=== PATIENT | female | born 1990 | race Caucasian/White ===

== ENCOUNTER → 2016-04-27 | Outpatient (CLI) | payer OTHER ==
[~2016-04-27] MED LIST: BENZ1CAP34 PO; IBUP800T23 PO; PREN0.01 PO; ZITH250T PO
== END ==
LOC: CLAB 12:42
PROVIDERS: ATTEND Obstetrics & Gynecology
DX: O62.1 Secondary uterine inertia (principal)
CPT/HCPCS: 36415; 84144

== ENCOUNTER → 2016-05-20 | Outpatient (CLI) | payer OTHER | LOC: CLAB 12:41 | PROVIDERS: ATTEND Obstetrics & Gynecology | DX: E28.9 Ovarian dysfunction, unspecified (principal) | CPT/HCPCS: 36415; 84144 ==

== ENCOUNTER → 2016-09-16 | Outpatient (CLI) | payer OTHER | LOC: CLAB 15:52 | PROVIDERS: ATTEND Obstetrics & Gynecology | DX: O26.21 Pregnancy care for patient with recurrent pregnancy loss, first trimester (principal) | CPT/HCPCS: 36415; 84144 ==

== ENCOUNTER → 2016-09-30 | Outpatient (CLI) | payer OTHER | LOC: CLAB 07:31 | PROVIDERS: ATTEND Obstetrics & Gynecology | DX: E28.9 Ovarian dysfunction, unspecified (principal) | CPT/HCPCS: 84703 ==

== ENCOUNTER → 2016-10-04 | Outpatient (CLI) | payer OTHER ==
[~2016-10-04] MED LIST changes: +IOHEXOL 300 MG/ML 50 ML BTL (for RAD DIAG) I-UTERINE ONE
--- NOTE | 2016-10-04 14:29 | RADRPT ---
EXAM DATE/TIME: 10/04/2016 07:53 [facility] COMPARISON: No previous studies available for comparison. INDICATIONS : Ovarian Dysfunction. 0.8 minutes 6 CONTRAST: 20 cc Omnipaque 300 (iohexol) DEVICE: [place]co Cannula MEDICAL HISTORY : None. SURGICAL HISTORY : None. ENCOUNTER: Initial ACUITY: 1 day PAIN SCORE: 0/10 LOCATION: Uterus. FINDINGS: Preliminary film is normal. Technical aspect of the cervical cannulation injection of contrast perf ormed by the referring physician. Examination is performed under fluoroscopic control. The uterus is normal. No defects are appreciated. There is rapid filling of the fallopian tubes and passage into the pelvis bilaterally. CONCLUSION: Normal hysterosalpingogram. Josue Braxton MD on October 04, 2016 at 14:23 Board Certified Radiologist. This report was verified electronically.
== END ==
LOC: HRAD 07:31
PROVIDERS: ATTEND Obstetrics & Gynecology
DX: E28.9 Ovarian dysfunction, unspecified (principal)
CPT/HCPCS: 58340; 74740; Q9967

== ENCOUNTER 2016-11-03 20:40 | Emergency (ER) | payer OTHER ==
[~2016-11-03] VITALS: Ht 165.1 cm; Wt 90.0 kg
[~2016-11-03 20:40] MED LIST changes: -IOHEXOL 300 MG/ML 50 ML BTL (for RAD DIAG) I-UTERINE ONE
[2016-11-03 20:45] VITALS: BP 135/82; PULSE 93; RESP 15; TEMP 99.2; O2SAT 96
--- NOTE | 2016-11-03 21:01 | PD ---
Physical Exam Time Seen by Provider: 21:00 Narrative 26 y/o female with lower abdominal pain which started today at 4pm. Vital signs reviewed. Seen at triage desk. Awaiting bed placement. Data Data Last Documented VS Vital Signs Date Time Temp Pulse Resp B/P Pulse Ox O2 Delivery O2 Flow Rate FiO2 11/03/16 20:45 99.2 93 15 135/82 96 Room Air [facility] Medical Record Reviewed: Yes Supervised Visit with ÁNGEL: Darío Ying Nov 03, 2016 21:00
[2016-11-04 00:53] VITALS: BP 127/93; PULSE 70; RESP 17; O2SAT 100
[2016-11-04 01:52] LABS: BACTERIA, URINE RARE /hpf; BASOPHIL % 0.4 % (0.0-2.0); BLOOD, URINE MOD (NEG); COMMENT (UR) CULT NOT INDICATED; CULTURE IF INDICATED CULT NOT INDICATED; EOSINOPHIL # 0.1 TH/MM3 (0-0.4); EOSINOPHIL % 0.8 % (0.0-4.0); GLUCOSE,URINE NEG (NEG); HEMATOCRIT 40.1 % (35.0-46.0); HEMO FLAGS DIFF FINAL; KETONE, URINE NEG (NEG); LYMPH % 27.9 % (9.0-44.0); LYMPHOCYTE # 3.4 TH/MM3 (1.0-4.8); MEAN CORPUSCULAR HEMOGLOBIN 24.3 PG (27.0-34.0); MEAN CORPUSCULAR HGB CONC 32.8 % (32.0-36.0); MONO % 5.1 % (0.0-8.0); MUCUS URINE FEW /lpf (OCC); NEUT % 65.8 % (16.0-70.0); NITRITE,URINE NEG (NEG); PLATELET COUNT 192 TH/MM3 (150-450); RED BLOOD COUNT 5.41 MIL/MM3 (4.00-5.30); RED CELL DISTRIBUTION WIDTH 19.2 % (11.6-17.2); SQUAMOUS EPITHELIAL CELL URINE 1 /hpf (0-5); URINE COLOR YELLOW (YELLW/STRAW); WHITE BLOOD COUNT 12.1 TH/MM3 (4.0-11.0)
[2016-11-04 01:58] LABS: ALT (GPT) 27 U/L (10-53); ANION GAP 8 MEQ/L (5-15); AST (GOT) 15 U/L (15-37); BICARBONATE 25.8 MEQ/L (21.0-32.0); BLOOD UREA NITROGEN 9 MG/DL (7-18); CHLORIDE 103 MEQ/L (98-107); GLOMERULAR FILTRATION RATE 92 ML/MIN (>89); POTASSIUM 3.7 MEQ/L (3.5-5.1); SODIUM (NA) 137 MEQ/L (136-145)
[2016-11-04 02:02] LABS: ALKALINE PHOSPHATASE 81 U/L (45-117); BETA HCG QUANT 590 MIU/ML (0-5); TOTAL BILIRUBIN ADULT 0.3 MG/DL (0.2-1.0)
--- NOTE | 2016-11-04 02:24 | PD ---
HPI Chief Complaint: Abdominal Pain Time Seen by Provider: 01:03 Travel History International Travel<30 days: No Contact w/Intl Traveler<30days: No Traveled to known affect area: No History of Present Illness HPI 26-year-old female arrives to the ER complaining of right lower quadrant abdominal pain. She reports approximately 6 hours of pain. She states the pain started somewhat suddenly. Her last menstruation was 5 weeks prior. She is 2 para 1 with one miscarriage a year ago approximately and a point-of -care urine test discovered today which was unexpected. The patient reports vaginal bleeding with wiping, a trace amount of pink blood on paper. She reports no nausea or vomiting. She has no back pain. Her appetite has been normal. She denies a history of STD. FOR[facility]LY [facility] Past Medical History Asthma: Yes Diminished Hearing: No Respiratory: Yes (ASTHMA) Tetanus Vaccination: Unknown Influenza Vaccination: Yes ?: Unknown LMP: 09/26/16 : 1 Miscarriage: 1 Ovarian Cysts: Yes Past Surgical History Surgical History: No Previous Surgery Social History Alcohol Use: No Tobacco Use: No Substance Use: No Allergies-Medications (Allergen,Severity, Reaction): Coded Allergies: No Known Allergies (Unverified , 11/03/16) Reported Meds & Prescriptions Reported Meds & Active Scripts Active No Active Prescriptions or Reported Medications Review of Systems Except as stated in HPI: all other systems reviewed are Neg Physical Exam Narrative GENERAL: 26-year-old female well-nourished well-developed SKIN: Focused skin assessment warm/dry. HEAD: Atraumatic. Normocephalic. EYES: Pupils equal and round. No scleral icterus. No injection or drainage. ENT: No nasal bleeding or discharge. Mucous membranes pink and moist. NECK: Trachea midline. No JVD. CARDIOVASCULAR: Regular rate and rhythm. No murmur appreciated. RESPIRATORY: No accessory muscle use. Clear to auscultation. Breath sounds equal bilaterally. GASTROINTESTINAL: Soft. Minimal tenderness in the right abdomen. MUSCULOSKELETAL: No obvious deformities. No clubbing. No cyanosis. No edema. NEUROLOGICAL: Awake and alert. No obvious cranial nerve deficits. Motor grossly within normal limits. Normal speech. PSYCHIATRIC: Appropriate mood and affect; insight and judgment normal. Data Data Last Documented VS Vital Signs Date Time Temp Pulse Resp B/P Pulse Ox O2 Delivery O2 Flow Rate FiO2 11/04/16 00:53 70 17 127/93 100 Room Air 11/03/16 20:45 99.2 Vital signs reviewed Orders Beta Hcg (Quant/Titer) (11/04/16 01:14) Complete Blood Count With Diff (11/04/16 01:14) Comprehensive Metabolic Panel (11/04/16 01:14) Complete Rh (11/04/16 01:14) Urinalysis - C+S If Indicated (11/04/16 01:14) Iv Access Insert/Monitor (11/04/16 01:14) Ecg Monitoring (11/04/16 01:14) Ed Urine Pregnancytest Poc (11/04/16 01:26) Us Pelvis (Ques Pr/Ect)W Trans (11/04/16 ) Labs Laboratory Tests Test 11/04/16 01:15 White Blood Count 12.1 TH/MM3 Red Blood Count 5.41 MIL/MM3 Hemoglobin 13.1 GM/DL Hematocrit 40.1 % Mean Corpuscular Volume 74.0 FL Mean Corpuscular Hemoglobin 24.3 PG Mean Corpuscular Hemoglobin 32.8 % Concent Red Cell Distribution Width 19.2 % Platelet Count 192 TH/MM3 Mean Platelet Volume 8.9 FL Neutrophils (%) (Auto) 65.8 % Lymphocytes (%) (Auto) 27.9 % Monocytes (%) (Auto) 5.1 % Eosinophils (%) (Auto) 0.8 % Basophils (%) (Auto) 0.4 % Neutrophils # (Auto) 8.0 TH/MM3 Lymphocytes # (Auto) 3.4 TH/MM3 Monocytes # (Auto) 0.6 TH/MM3 Eosinophils # (Auto) 0.1 TH/MM3 Basophils # (Auto) 0.0 TH/MM3 CBC Comment DIFF FINAL Differential Comment Urine Color YELLOW Urine Turbidity HAZY Urine pH 7.0 Urine Specific [place] 1.011 Urine Protein NEG mg/dL Urine Glucose (UA) NEG mg/dL Urine Ketones NEG mg/dL Urine Occult Blood MOD Urine Nitrite NEG Urine Bilirubin NEG Urine Urobilinogen LESS THAN 2.0 MG/DL Urine Leukocyte Esterase NEG Urine RBC 1 /hpf Urine WBC 1 /hpf Urine Squamous Epithelial 1 /hpf Cells Urine Bacteria RARE /hpf Urine Mucus FEW /lpf Microscopic Urinalysis Comment CULT NOT INDICATED Sodium Level 137 MEQ/L Potassium Level 3.7 MEQ/L Chloride Level 103 MEQ/L Carbon Dioxide Level 25.8 MEQ/L Anion Gap 8 MEQ/L Blood Urea Nitrogen 9 MG/DL Creatinine 0.76 MG/DL Estimat Glomerular Filtration 92 ML/MIN Rate Random Glucose 100 MG/DL Calcium Level 8.8 MG/DL Total Bilirubin 0.3 MG/DL Aspartate Amino Transf 15 U/L (AST/SGOT) Alanine Aminotransferase 27 U/L (ALT/SGPT) Alkaline Phosphatase 81 U/L Total Protein 8.4 GM/DL Albumin 3.6 GM/DL Human Chorionic Gonadotropin, 590 MIU/ML Quant Blood Type O POSITIVE Rho(D) Type POSITIVE MDM Medical Decision Making Medical Screen Exam Complete: Yes Emergency Medical Condition: Yes Medical Record Reviewed: Yes Differential Diagnosis IUP, UTI, ectopic , ov torsion, appendicitis, TOA, cervicitis, BV, Trichomoniasis, ov cyst, hernia, mittelschmerz, pain from menstruation Narrative Course CBC & BMP Diagram 11/04/16 01:15 LFTs normal Beta hCG 590 Urinalysis shows moderate occult blood no UTI Blood type is O+ Patient was seen here previously with similar complaint of pain in the right lower quadrant. CT scan at that time was unremarkable aside from trace free fluid in the pelvis. Diagnosis Primary Impression: Qualified Code: Z3A.01 - Less than 8 weeks gestation of Additional Impression: Right sided abdominal pain Referrals: Kurt Rodriguez MD 3 days Additional Instructions: You have a choice when it comes to health care, and we are glad that you chose [facility]. Hopefully, we have met your expectations on today's visit. You are welcome to return to [facility] at any time, as we are committed to meeting the health care needs of our community. Follow-up with your medical records receptionist in 2 days. It is important that you undergo a repeat beta hCG test. Your beta hCG today was 590. Med/Other Pt SpecificInfo: Prescription(s) given Scripts Vit-Ferrous Fumarate ()1 Tab Tab1 Tab PO DAILY #30 TAB Ref 2 Prov:Lul Jaramillo MD 11/04/16 Disposition: 01 DISCHARGE HOME Condition: Stable Lul Jaramillo MD Nov 04, 2016 02:24
--- NOTE | 2016-11-04 04:16 | RADRPT ---
EXAM DATE/TIME: 11/04/2016 02:25 [facility] COMPARISON: No previous studies available for comparison. INDICATIONS : Pelvic pain and bleeding with . LAB(S): Beta-hC MEDICAL HISTORY : . Miscarriage. Asthma. Ovarian cysts. SURGICAL HISTORY : None. ENCOUNTER: Initial ACUITY: 1 day PAIN SCORE: 5/10 LOCATION: Bilateral pelvis MEASUREMENTS: UTERUS: 8.8 x 5.0 x 4.0 cm ENDOMETRIAL STRIPE: 9 mm RIGHT OVARY: 3.3 x 2.8 x 1.7 cm LEFT OVARY: 3.3 x 3.1 x 1.7 cm FREE FLUID: Yes In posterior cul de sac. CROWN RUMP LENGTH: Non visualized. = WKS DAYS FHR: Non visualized. BPM FINDINGS: Ultrasound pelvis and uterus are normal size, shape and echogenicity without focal lesion. No free fl uid or adnexal masses are seen. No intrauterine is identified. No adnexal masses are identi fied. The ovaries are normal in size and shape without evidence of focal mass. Multiple nabothian cys ts are present in the lower uterine segment. CONCLUSION: 1. No evidence of intrauterine . Ectopic cannot be excluded. Art Coates MD on November 04, 2016 at 4:12 Board Certified Radiologist. This report was verified electronically.
[2016-11-04] MEDS ORDERED: TRICTAB PO (04:28)
[2016-11-04 04:30] VITALS: BP 132/78
== END 2016-11-04 04:45 | disposition home or self-care (01) ==
LOC: NEPE 20:40
DX: O26.891 Other specified pregnancy related conditions, first trimester (principal); R10.2 Pelvic and perineal pain; Z3A.01 Less than 8 weeks gestation of pregnancy
CPT/HCPCS: 76700; 76817; 80053; 81001; 84702; 84703; 85025; 86901

== ENCOUNTER → 2016-11-07 | Outpatient (CLI) | payer OTHER ==
[~2016-11-07] MED LIST changes: -BENZ1CAP34 PO; -IBUP800T23 PO; -PREN0.01 PO; +TRICTAB PO; -ZITH250T PO
[2016-11-07 09:18] LABS: BETA HCG QUANT 180 MIU/ML (0-5)
== END ==
LOC: CLAB 08:25
PROVIDERS: ATTEND Obstetrics & Gynecology
DX: O26.21 Pregnancy care for patient with recurrent pregnancy loss, first trimester (principal)
CPT/HCPCS: 36415; 84144; 84702

== ENCOUNTER → 2016-11-10 | Outpatient (CLI) | payer OTHER | LOC: CLAB 11:09 | PROVIDERS: ATTEND Obstetrics & Gynecology | DX: E28.9 Ovarian dysfunction, unspecified (principal) | CPT/HCPCS: 36415; 84703 ==

== ENCOUNTER → 2017-04-11 | Outpatient (CLI) | payer OTHER ==
[~2017-04-11] MED LIST changes: +AUGM875T3 PO; +BENZ100 PO
== END ==
LOC: CLAB 13:08
PROVIDERS: ATTEND Obstetrics & Gynecology
DX: E28.9 Ovarian dysfunction, unspecified (principal)
CPT/HCPCS: 36415; 84144

== ENCOUNTER → 2017-09-05 | Outpatient (CLI) | payer OTHER ==
[2017-09-05 09:55] LABS: HEMATOCRIT 41.9 % (35.0-46.0); HEMOGLOBIN 13.8 GM/DL (11.6-15.3); MEAN CELL VOLUME 72.8 FL (80.0-100.0); MEAN CORPUSCULAR HGB CONC 32.9 % (32.0-36.0); MEAN PLATELET VOLUME 8.1 FL (7.0-11.0); PLATELET COUNT 212 TH/MM3 (150-450); RED BLOOD COUNT 5.76 MIL/MM3 (4.00-5.30); RED CELL DISTRIBUTION WIDTH 17.9 % (11.6-17.2); WHITE BLOOD COUNT 6.4 TH/MM3 (4.0-11.0)
[2017-09-05 10:12] LABS: BLOOD UREA NITROGEN 9 MG/DL (7-18); CREATININE 0.65 MG/DL (0.50-1.00); GLOMERULAR FILTRATION RATE 109 ML/MIN (>89)
[2017-09-05 10:23] LABS: FREE T4 0.98 NG/DL (0.76-1.46)
[2017-09-05 15:47] LABS: HEMOGLOBIN A1C 6.1 % (4.3-6.0)
[2017-09-06 08:16] LABS: LUTEINIZING HORMONE 8.8 mIU/mL
[2017-09-06 14:07] LABS: CARDIOLIPIN IGG AB <9.4 GPL; CARDIOLIPIN IGM AB <9.4 MPL
[2017-09-07 15:53] LABS: PROGESTERONE LESS THAN 0.1 ng/mL
[2017-09-07 17:51] LABS: DEHYDROEPIANDROSTERONE SULFATE 139 mcg/dL (18-391)
[2017-09-08 03:51] LABS: 17 HYDROXYPROGESTERONE 42 ng/dL (16-283)
[2017-09-08 13:52] LABS: BETA2-GLYCOPROTEIN IGA <9 SAU (< OR = 20); BETA2-GLYCOPROTEIN IGG <9 SGU (< OR = 20); BETA2-GLYCOPROTEIN IGM <9 SMU (< OR = 20)
[2017-09-08 23:51] LABS: DRVVT 1:1 MIX CORRECTED (CORRECTED); DRVVT CONFIRM POSITIVE (NEGATIVE); HEXAGONAL PHASE CONFIRM ND (NEGATIVE)
[2017-09-09 11:00] LABS: BIOAVAILABLE TESTOSTERONE 8.7 ng/dL; FREE TESTOSTERONE 0.66 ng/dL (0.06-1.06); TOTAL TESTOSTERONE 15 ng/dL (8-60)
== END ==
LOC: CLAB 08:15
DX: N97.9 Female infertility, unspecified (principal); N96 Recurrent pregnancy loss; N92.5 Other specified irregular menstruation; E66.9 Obesity, unspecified
CPT/HCPCS: 36415; 82565; 82627; 82951; 83001; 83002; 83020; 83036; 83498; 83525; 84144; 84403; 84410; 84439; 84443; 84520; 85027; 85597; 85613; 85730; 86146; 86147; 86762